=== PATIENT | male | born 1955 | race Caucasian/White ===

== ENCOUNTER 2020-07-21 11:32 | Emergency (ER) | payer OTHER, SELFPAY ==
[2020-07-21 11:34] VITALS: BP 170/112; PULSE 91; RESP 17; TEMP 36.2; O2SAT 100
--- NOTE | 2020-07-21 14:40 | ED.EAR ---
HPI - Ear Problem General Chief complaint: Ear <Lorene Mendoza PA-C - Last Filed: 07/21/20 17:30> Stated complaint: fall/ear injury <PREMA Vazquez Last Filed: 07/21/20 17:30> Time Seen by Provider: 07/21/20 11:50 <PREMA Vazquez Last Filed: 07/21/20 17:30> Source: patient <PREMA Vazquez Last Filed: 07/21/20 17:30> Mode of arrival: ambulatory <PREMA Vazquez Last Filed: 07/21/20 17:30> Limitations: no limitations <PRMEA Vazquez Last Filed: 07/21/20 17:30> History of Present Illness HPI Narrative: This is a 64-year-old male that presents the emergency department for left ear injury sustained 2 days ago. Reports he tripped and fell forward and cut his ear on the bottom of the stove. Reports he was unable to be seen until today as he did not have a ride. Denies loss of consciousness, prodromal symptoms, vision changes, vomiting, other injuries, weakness, or numbness. <Lorene Mendoza PA-C - Last Filed: 07/21/20 17:30> Related Data Allergies/adverse reactions: Allergies Allergy/AdvReac Type Severity Reaction Status Date / Time No Known Allergies Allergy Verified 07/21/20 11:39 <Lorene Mendoza PA-C - Last Filed: 07/21/20 17:30> Review of Systems Review of Systems: Narrative: CONSTITUTIONAL: Denies fever EYES: Denies visual changes GASTROINTESTINAL: Denies vomiting NEUROLOGIC: Denies headache, numbness, or weakness. <PREMA Vazquez Last Filed: 07/21/20 17:30> All systems reviewed & are unremarkable except as noted in HPI and below <PREMA Vazquez Last Filed: 07/21/20 17:30> PMFSH Social History Social History: Social History Gender identity (if verbalized by the patient): Male <PREMA Vazquez Last Filed: 07/21/20 17:30> Exam Narrative: Exam Narrative: GENERAL: Well-appearing, well-nourished, and in no acute distress. HEAD: Normocephalic. Left ear with 3.5cm through and through laceration through the helix and into the scaphoid fossa EYES: PERRLA and EOMI. ENT: Nares clear, no rhinorrhea or epistaxis. Mucous membranes moist. Oropharynx without tonsillar hypertrophy exudate or other lesions. Bilateral cerumen impaction. NECK: Supple. No adenopathy or masses. No midline spinal tenderness CHEST: Clear to auscultation. No respiratory distress. No wheezes rales or rhonchi HEART: Regular rate and rhythm. No murmur heard. Normal peripheral pulses. EXTREMITIES: Normal range of motion. No edema. Strength equal in bilateral upper extremities (5/5) SKIN: Warm, dry, no rash. NEURO: No focal deficits. Alert and oriented x3. 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 He sustained a laceration to the left ear 3 days ago. On exam he has a complex laceration to the left ear involving the cartilage with missing tissue. ENT consulted. They saw him in the ED and repaired his laceration. <Fox Godinez MD - Last Filed: 07/21/20 19:31> Consultations Consultation #1: Spoke with Dr. Rolon about patient who came to the ED and saw the patient. He sutured patient's wound. <Lorene Mendoza PA-C - Last Filed: 07/21/20 17:30> Date: 07/21/20 <Lorene Mendoza PA-C - Last Filed: 07/21/20 17:30> Time: 14:00 <PREMA Vazquez Last Filed: 07/21/20 17:30> Vital Signs Vital signs: Vital Signs Temperature 36.2 C L 07/21/20 11:34 Pulse Rate 91 07/21/20 11:34 Respiratory Rate 17 07/21/20 11:34 Blood Pressure 170/112 H 07/21/20 11:34 Pulse Oximetry 100 07/21/20 11:34 Temperature 36.2 C L 07/21/20 11:34 Pulse Rate 95 07/21/20 17:53 Respiratory Rate 20 07/21/20 1
--- NOTE | 2020-07-21 16:40 | PC.NURSE ---
Plastic surgeon at bedside suturing left ear.
--- NOTE | 2020-07-21 17:29 | PM.IMHP ---
H&P: HPI History of Present Illness Date/Time: 07/21/20 17:29 Chief complaint: fall/ear injury Narrative: Teddy Bennett is a 64 year old male Status post fall approximately 48 hours ago resulting in the left external ear injury. The laceration is approximately 3 cm linear extends from the triangular fossa posteriorly through the scaphoid and finally through the helix. I was consulted for further evaluation and repair. There was tissue defect noted within the fossa triangularis and scapha. Review of Systems Constitutional: Constitutional: Denies fever(s) and Denies lethargy Eyes: Eyes: Denies blurry vision and Denies change in vision ENT: Reports as per HPI Hematologic/Lymphatic: Hematologic/Lymphatic: Denies easy bleeding, Denies easy bruising and Denies lymphadenopathy PMFSH Social History Social History Gender identity (if verbalized by the patient): Male Meds Home Medications and Allergies Home Medications Medication Instructions Recorded Confirmed Type ciprofloxacin HCl 500 mg PO Q12H 5 Days #10 tablet 07/21/20 Rx Allergies Allergy/AdvReac Type Severity Reaction Status Date / Time No Known Allergies Allergy Verified 07/21/20 11:39 Vital Signs Vital Signs - 24 hr 07/21/20 11:34 Temperature 36.2 C L Pulse Rate 91 Respiratory Rate 17 Blood Pressure 170/112 H Pulse Oximetry 100 Exam Const: General: cooperative, healthy appearing, comfortable, well developed and alert HENMT: Head: normal to inspection, normocephalic and atraumatic Ears: hearing grossly normal bilaterally General nose exam: Normal external nose present, Normal nares present, No nasal polyps present, Normal nasal mucous membranes and turbinates present and Normal septum present Face and sinus: normal facial exam Mouth: Yes Normal oral and palatal mucosa present, Yes lip normal, Yes tongue normal, Yes oropharynx normal and Yes moist mucous membranes Teeth and gingiva: dentition normal and gingiva normal Throat: posterior oropharynx normal, tonsils normal and uvula midline Other: Ears are within normal limits other than the laceration through the left external ear see HPI for details Eyes: General: appearance normal, both eyes and all related structures Periorbital: periorbital findings normal Eyelids: eyelids normal Conjunctivae: conjunctivae normal Sclera: sclerae normal Neck: Neck: normal visual inspection, full ROM and no lymphadenopathy Thyroid: thyroid normal Lymphatic: no lymphadenopathy noted Resp: Effort & Inspection: normal respiratory effort and able to speak in complete sentences Cardio: Jugular venous distension: no JVD Neuro: Cranial nerves: Yes CN's II-XII intact bilaterally Assessment and Plan Assessment and plan (1) Laceration of ear, external, left, complicated: Qualifiers: Encounter type: initial encounter Qualified Code(s): S01.312A - Laceration without foreign body of left ear, initial encounter Code(s): S01.312A - Laceration without foreign body of left ear, initial encounter Status: Acute Assessment and Plan: The plan is for repair in the ER. Following repair ciprofloxacin 500 mg b.i.d. for 5 days. Ten days of b.i.d. antibiotic ointment application. Keep dry for 3 days. Do not submerge or soak for 7 days. The patient was offer 2 options 1 of which may end up with a more cosmetically appealing external ear. This however would result in several follow-up visits as it would take time for the defect to granulate in. The patient elected to have the defect and cartilage covered which would result in a lop deformity, albeit small. The patient voiced understanding of these risks and elected to have the safer option covering the cartilage in defect with what tissue was available.
--- NOTE | 2020-07-21 17:34 | PM.PROC ---
Procedure Note - Detailed Date of procedure: 07/21/20 Pre-op diagnosis: fall/ear injury 1. Complex left external ear injury Post-op diagnosis: same Procedure performed: 1. Repair of laceration 2. Complex closure of laceration 3cm in length Description of procedure: The patient presented with a 3 cm linear laceration through the fossa triangularis extending posteriorly through the scapha and finally through the helix splitting the ear in two. Of note there was a tissue defect within the scapha and fossa triangularis as well Two repair options we presented to the patient. One which would result in subsequent follow-up visits requiring secondary intention as a healing mechanism. This option would result in more cosmetically appearing ear. the 2nd option was to fold the available tissue over to cover the skin defect as well as exposed cartilage but inherently creating a lop ear defect. Patient weighed his options and decided the coverage and essentially creating a safer lop ear was his best option given his social situation. The patient was correctly identified and consent was verified in the emergency room. The wound was then copiously irrigated with 500 cc of sterile normal saline. 8 cc of 1% lidocaine with 1 100,000 parts epinephrine was injected In a 4 quadrant ear block fashion as well as into the incision itself. The patient was then prepped for the aforementioned procedure. Necrotic tissue was excised.The deep structures were closed with 4 0 Monocryl interrupted sutures. The skin was closed with a 5 0 running fast gut suture. Two mattress to 4 0 Monocryl sutures were placed to ensure that no hematoma formed. Antibiotic ointment was then applied. I performed the procedure. Anesthesia: local Surgeon: Jas Rolon MD Estimated blood loss (mL): 1 Complications: No immediate complications Condition: stable Findings: 3 cm laceration Minimal exposed cartilage covered with available tissue
[2020-07-21] MEDS: CIPROFLOXACIN 500 MG TAB PO (17:52)
[2020-07-21 17:53] VITALS: BP 179/102; PULSE 95; RESP 20
== END 2020-07-21 17:54 | disposition home or self-care (01) ==
PROVIDERS: Emergency Provider Emergency Medicine
DX: S01.312A Laceration without foreign body of left ear, initial encounter (principal); W01.198A Fall on same level from slipping, tripping and stumbling with subsequent striking against other object, initial encounter
CPT/HCPCS: 13152; 99283; A9270

== ENCOUNTER 2021-05-26 20:28 | Emergency (ER) | payer OTHER, SELFPAY ==
--- NOTE | ~2021-05-26 | CT_ITS ---
EXAMINATION: CT brain wo con DATE: 05/26/2021 22:15 INDICATION: Frequent falls. TECHNIQUE: Computed tomography (CT) of the head was performed without intravenous contrast. The mA wa s adjusted according to patient size. Iterative reconstruction technique was employed. The dose-lengt h product was 605.33 mGy-cm. COMPARISON: None FINDINGS: There are scattered areas of low attenuation in the cerebral white matter. There is no intr acranial hemorrhage, acute infarction, or abnormal intracranial mass lesion. The ventricles are jordan l in size. There are likely changes of ocular lens replacement surgeries. There are old fracture defo rmities of the nasal bones. There are old blowout fractures involving the medial wall and floor of le ft orbit. The mastoid air cells are normal. IMPRESSION: 1. Mild nonspecific cerebral white matter disease, which likely represents chronic small vessel ische nathalie disease. Reviewed, dictated and finalized at location A. IMPRESSION: 1. Mild nonspecific cerebral white matter disease, which likely represents siphon operator eric small vessel ischemic disease.
--- NOTE | ~2021-05-26 | XR_ITS ---
EXAMINATION: XR lumbar spine 2-3V DATE: 05/26/2021 22:20 INDICATION: Low back pain. TECHNIQUE: 3 views of lumbar spine were obtained. COMPARISON: None. FINDINGS: There is 5 degrees levocurvature of lumbar spine. There is 5 mm anterolisthesis of L5 on S1 . There is 3 mm anterolisthesis of L4 on L5. Vertebral body heights are normal. There is mildly decre ased disc height at L1-L2, L2-L3, and L3-L4 and severely decreased disc height at L4-L5 and L5-S1. Th ere is multilevel facet joint osteoarthritis, severe in lower lumbar spine. IMPRESSION: 1. Severe lumbar spondylosis. Reviewed, dictated and finalized at location A.
[2021-05-26 20:32] VITALS: BP 178/82; PULSE 80; RESP 20; TEMP 36.7; O2SAT 99
--- NOTE | 2021-05-26 22:38 | ED.GENADULT ---
HPI - General Adult General Chief complaint: Back Pain/Injury Stated complaint: back pain Time Seen by Provider: 05/26/21 21:43 History of Present Illness HPI narrative: Patient 65-year-old gentleman who presents the emergency department chief complaint of back pain. The patient reports that he has had chronic back pain for some time also reports that he has had frequent falls patient does report that he drinks a fair amount of alcohol the patient initially had reported that he drinks a patient reports that today she has had some low back pain the pain to her fifth of alcohol a day but then later on came in and said that he drank two beers and a shot of whiskey today. Patient states he also uses cocaine patient denies focal neurological deficits reports that he last had an episode where he fell down a couple days ago. Patient states that has not had any bowel or bladder dysfunction. Related Data Allergies Allergy/AdvReac Type Severity Reaction Status Date / Time No Known Allergies Allergy Verified 07/21/20 11:39 Review of Systems Review of Systems: A 10 system review of systems was completed on the patient and is negative except for what is stated in the HPI. Nursing and ancillary documentation was reviewed. [facility] Social History Social History Gender identity (if verbalized by the patient): Male Exam Narrative: GENERAL: Well-appearing, well-nourished, and in no acute distress. HEAD: Normocephalic, atraumatic. EYES: PERRLA and EOMI. ENT: Nares clear, no rhinorrhea or epistaxis. Mucous membranes moist. NECK: Supple. CHEST: Clear to auscultation. No respiratory distress. HEART: Regular rate and rhythm. No murmur heard. Normal peripheral pulses. ABDOMEN: Soft, nontender, nondistended, normal active bowel sounds. EXTREMITIES: Normal range of motion. No edema. Back: Patient is tenderness to palpation in the lumbar region SKIN: Warm, dry, no rash. NEURO: No focal deficits. Alert and oriented x3. PSYCH: Normal mood and affect. Course Vital Signs Vital signs: Vital Signs Temperature 36.7 C 05/26/21 20:32 Pulse Rate 80 05/26/21 20:32 Respiratory Rate 20 05/26/21 20:32 Blood Pressure 178/82 H 05/26/21 20:32 Pulse Oximetry 99 05/26/21 20:32 Temperature 36.7 C 05/26/21 20:32 Pulse Rate 80 05/26/21 20:32 Respiratory Rate 20 05/26/21 20:32 Blood Pressure 178/82 H 05/26/21 20:32 Pulse Oximetry 99 05/26/21 20:32 Medical Decision Making Vital Signs Vital Signs: Vital Signs Temperature 36.7 C 05/26/21 20:32 Pulse Rate 80 05/26/21 20:32 Respiratory Rate 20 05/26/21 20:32 Blood Pressure 178/82 H 05/26/21 20:32 Pulse Oximetry 99 05/26/21 20:32 Temperature 36.7 C 05/26/21 20:32 Pulse Rate 80 05/26/21 20:32 Respiratory Rate 20 05/26/21 20:32 Blood Pressure 178/82 H 05/26/21 20:32 Pulse Oximetry 99 05/26/21 20:32 Discharge Plan Discharge Clinical Impression: Strain of lumbar region Qualifiers: Encounter type: initial encounter Qualified Code(s): S39.012A - Strain of muscle, fascia and tendon of lower back, initial encounter Patient Disposition: Home, Self-Care Condition: Stable Instructions: Antibiotic Form, Acute Low Back Pain (ED) Prescriptions: New meloxicam 15 mg tablet 15 mg PO DAILY Qty: 14 RF: 0 No Action ciprofloxacin HCl 500 mg tablet 500 mg PO Q12H 5 Days Qty: 10 RF: 0 Follow-up/Referrals: PHYSICIAN NOT ON STAFF,NONSTAFF [Primary Care Provider] - Time of Disposition: 22:48
== END 2021-05-26 23:03 | disposition home or self-care (01) ==
PROVIDERS: Emergency Provider Emergency Medicine
DX: S39.012A Strain of muscle, fascia and tendon of lower back, initial encounter (principal); X58.XXXA Exposure to other specified factors, initial encounter
CPT/HCPCS: 70450; 72100; 99284

== ENCOUNTER 2022-05-13 17:05 | Emergency (ER) | payer MEDICARE, MEDICAID, SELFPAY ==
--- NOTE | ~2022-05-13 | XR_ITS ---
EXAMINATION: XR chest 2V DATE: 05/13/2022 19:19 INDICATION: Palpitations. Fall. TECHNIQUE: Frontal and lateral views of the chest were obtained. COMPARISON: None. FINDINGS: The chest demonstrates clear lungs without pneumonia, pleural effusion, or pneumothorax. Th e heart size is normal. IMPRESSION: 1. No acute cardiopulmonary disease. Reviewed, dictated and finalized at location A.
--- NOTE | ~2022-05-13 | CT_ITS ---
EXAMINATION: CT brain wo con DATE: 05/13/2022 21:49 INDICATION: Head injury. TECHNIQUE: Computed tomography (CT) of the head was performed without intravenous contrast. The mA wa s adjusted according to patient size. Iterative reconstruction technique was employed. The dose-lengt h product was 605.33 mGy-cm. COMPARISON: Head CT 05/26/2021 FINDINGS: There is no intracranial hemorrhage, acute infarction, or abnormal intracranial mass lesion . There are scattered areas of low attenuation in the cerebral white matter. The ventricles are jordan l in size. There are likely changes of ocular lens replacement surgeries. There are old blowout fract ures of the medial wall and floor of left orbit. There is an old fracture deformity of right nasal dasha ne. The mastoid air cells are normal. IMPRESSION: 1. Stable mild nonspecific cerebral white matter disease, which likely represents chronic small vesse l ischemic disease. Reviewed, dictated and finalized at location A. IMPRESSION: 1. Stable mild nonspecific cerebral white matter disease, which likely represen ts chronic small vessel ischemic disease.
[2022-05-13 17:11] VITALS: BP 148/98; PULSE 101; RESP 20; TEMP 36.7; O2SAT 99
--- NOTE | 2022-05-13 17:17 | ECG_ITS ---
Measurements Intervals [place] Rate: 96 P: 5 RI: 109 QRS: 8 QRSD: 85 T: 32 QT: 376 QTc: 476 Interpretive Statements SINUS RHYTHM WITH SHORT RI INTERVAL EARLY PRECORDIAL R/S TRANSITION BASELINE ARTIFACT- II, III, AVR, AVL, AVF BORDERLINE ECG Electronically Signed On 05-13-2022 20:24:44 CDT by Jose Manuel Milan D.O.
[2022-05-13 18:09] LABS: Basophils Absolute Auto 0.1 K/mm3 (0.0-0.1); Basophils Percent Auto 0.9 % (0.2-1.2); Eosinophils Absolute Auto 0.1 K/mm3 (0-0.3); Eosinophils Percent Auto 0.7 % (0-4.4); Hematocrit 38.4 % (42.0-52.0); Hemoglobin 12.7 g/dL (14.0-18.0); Immature Granulocyte Absolute 0.05 K/mm3 (0.00-0.031); Immature Granulocyte Percent A 0.7 % (0-0.5); Lymphocytes Absolute Auto 1.28 K/mm3 (0.9-3.2); Lymphocytes Percent Auto 17.3 % (18.3-44.2); Mean Corpuscular HGB Conc 33.1 g/dl (32-36); Mean Corpuscular Hemoglobin 33.2 pg (26-34); Mean Corpuscular Volume 100.5 fl (80-100); Mean Platelet Volume 9.3 fl (7.4-10.4); Monocytes Absolute Auto 0.7 K/mm3 (0.1-0.6); Monocytes Percent Auto 9.2 % (2.6-8.5); Neutrophils Absolute Auto 5.3 K/mm3 (1.3-6.7); Neutrophils Percent Auto 71.2 % (45.5-73.1); Platelet Count Result 263 k/mm3 (150-375); Red Blood Count 3.82 M/mm3 (4.6-6.20); Red Cell Distribution Width 13.2 % (11.5-14.5); White Blood Count 7.4 K/mm3 (4.5-10.0)
[2022-05-13 18:19] LABS: Prothrombin Time 12.9 Seconds (11.1-14.7)
[2022-05-13 18:20] LABS: Partial Thromboplastin Time 30.2 SECONDS (22.3-36.8)
[2022-05-13 18:24] LABS: Alanine Aminotransferase 39 U/L (6-50); Albumin Level 3.8 g/dL (3.5-5.1); Alkaline Phosphatase 124 U/L (38-126); Anion Gap 5 mmol/L (8-16); Aspartate Amino Transferase 58 U/L (17-59); Blood Urea Nitrogen 6 mg/dL (9-20); Carbon Dioxide 29 mmol/L (22-30); Chloride 104 mmol/L (98-107); Estimated CRCL calculation 104 ml/min; Estimated Glomerular Filt Rate > 60; Glucose 107 mg/dL (65-110); Lipase 86 U/L (23-300); Potassium 3.4 mmol/L (3.4-5.0); Sodium 138 mmol/L (137-145)
[2022-05-13 18:30] LABS: Troponin I < 0.012 ng/mL (0.000-0.034)
[2022-05-13 21:20] VITALS: BP 163/94; PULSE 95; RESP 18; O2SAT 95
--- NOTE | 2022-05-13 21:28 | ED.GENADULT ---
HPI - General Adult General Chief complaint: Arrhythmia/Palpitations Stated complaint: Chest Pain x3 days, lac on head Time Seen by Provider: 05/13/22 21:13 History of Present Illness HPI narrative: 66-year-old male presented to the emergency department for evaluation of approximately 1 month of not feeling well and 2 months of intermittent heart palpitations Patient states he has had increased dizziness and lightheadedness. Patient reports he did have a fall approximately 2 weeks ago and struck his head. Patient states he had no loss of consciousness at that time. Patient did not seek medical follow-up after the fall. Patient states that he has no associated nausea vomiting diarrhea. Patient denies any chest pain or shortness of breath. Related Data Allergies Allergy/AdvReac Type Severity Reaction Status Date / Time No Known Allergies Allergy Verified 07/21/20 11:39 Review of Systems Review of Systems: CONSTITUTIONAL: Not feeling well EYES: Denies visual changes, redness, or discharge. ENT: Denies rhinorrhea, congestion, sore throat, or otalgia. CARDIOVASCULAR: Denies chest pain, palpitations, or edema. RESPIRATORY: Denies cough or dyspnea. GASTROINTESTINAL: Denies abdominal pain, nausea, vomiting, or diarrhea. GENITOURINARY: Denies dysuria or hematuria. SKIN: Denies rash or itching. MUSCULOSKELETAL: Denies back pain, joint pain, or myalgia. NEUROLOGIC: Denies headache, numbness, or weakness. PMFSH Social History Social History Gender identity (if verbalized by the patient): Male Exam Narrative: APPEARANCE: Well appearing, no pain, no distress, well-nourished. HEAD: normocephalic, healing 2 cm to posterior scalp EYES: PERRLA/EOMI, conjunctivae clear. NOSE: Normal no drainage THROAT: Pharynx clear, no exudate. NECK: Supple. No adenopathy, no masses. RESPIRATORY: Airway patent, respirations nonlabored. Clear to auscultation bilaterally, no rales, rhonchi, wheezing. CARDIOVASCULAR: Regular rate and rhythm without murmurs rubs or gallops. ABDOMINAL: Soft, nontender, nondistended, normal bowel sounds MUSCULOSKELETAL: Moves all extremities. Strength/ROM intact, No edema, No calf tenderness. NEURO: Alert. Cranial nerves II through XII intact. Grossly intact SKIN: Warm, dry. Normal Color Course Course Emergency Course: Radiology confirms that the patient has no subdural. Laceration will be left to heal by secondary intention. Chest x-ray shows no acute cardiopulmonary normality. Head CT showed no acute changes. Patient was able to ambulate at baseline. Patient had no EKG changes concerning with GA. Patient had negative serial troponins. Vital Signs Vital signs: Vital Signs Temperature 98.0 F 05/13/22 17:11 Pulse Rate 101 H 05/13/22 17:11 Respiratory Rate 20 05/13/22 17:11 Blood Pressure 148/98 H 05/13/22 17:11 Pulse Oximetry 99 05/13/22 17:11 Oxygen Delivery Room Air 05/13/22 17:11 Temperature 98.0 F 05/13/22 17:11 Pulse Rate 87 05/13/22 22:45 Respiratory Rate 16 05/13/22 22:45 Blood Pressure 157/81 H 05/13/22 22:45 Pulse Oximetry 97 05/13/22 22:45 Oxygen Delivery Room Air 05/13/22 17:11 Medical Decision Making Vital Signs Vital Signs: Vital Signs Temperature 98.0 F 05/13/22 17:11 Pulse Rate 101 H 05/13/22 17:11 Respiratory Rate 20 05/13/22 17:11 Blood Pressure 148/98 H 05/13/22 17:11 Pulse Oximetry 99 05/13/22 17:11 Oxygen Delivery Room Air 05/13/22 17:11 Temperature 98.0 F 05/13/22 17:11 Pulse Rate 87 05/13/22 22:45 Respiratory Rate 16 05/13/22 22:45 Blood Pressure 157/81 H 05/13/22 22:45 Pulse Oximetry 97 05/13/22 22:45 Oxygen Delivery Room Air 05/13/22 17:11 Lab Data Lab results reviewed: Yes I reviewed the patient's lab results. Result diagrams: 05/13/22 18:02 05/13/22 18:02 Labs: Lab Results 05/13/22 05/13/2204/24
[2022-05-13] MEDS: SODIUM CHLORIDE 0.9% IV 1,000 ML 999 ML IV CONT (22:44)
[2022-05-13 22:45] VITALS: BP 157/81; PULSE 87; RESP 16; O2SAT 97
[2022-05-13 23:08] LABS: Troponin I < 0.012 ng/mL (0.000-0.034)
[2022-05-13 23:25] LABS: SARS-CoV-2 RNA PCR Negative
[2022-05-14 00:41] VITALS: BP 173/70; PULSE 90; RESP 18; O2SAT 99
== END 2022-05-14 00:43 | disposition home or self-care (01) ==
PROVIDERS: Emergency Medicine; Emergency Provider Emergency Medicine
DX: R00.2 Palpitations (principal); S01.01XA Laceration without foreign body of scalp, initial encounter; Z20.822 Contact with and (suspected) exposure to COVID-19; R90.82 White matter disease, unspecified; W19.XXXA Unspecified fall, initial encounter
CPT/HCPCS: 36415; 70450; 71046; 80053; 83690; 84484; 85025; 85610; 85730; 93005; 96360; 96361; 99284; C9803; J7030; U0003; U0005